=== PATIENT | female | born 1990 | race Caucasian/White ===

== ENCOUNTER 2017-08-13 23:57 | Emergency (ER) | payer MEDICAID ==
[~2017-08-13] VITALS: Ht 160 cm; Wt 100.8 kg
[2017-08-14 00:04] VITALS: Ht 160 cm; Wt 100.8 kg
[2017-08-14 00:35] VITALS: BP 122/77
== END 2017-08-14 00:35 | disposition home or self-care (01) ==
LOC: ED 23:57
DX: J32.9 Chronic sinusitis, unspecified (principal); I10 Essential (primary) hypertension

== ENCOUNTER 2018-08-12 20:04 | Emergency (ER) | payer MEDICAID ==
[~2018-08-12] VITALS: Ht 162.6 cm; Wt 98.9 kg
[2018-08-12 20:08] VITALS: Ht 162.6 cm; Wt 98.9 kg
[2018-08-12 21:51] VITALS: BP 118/87
== END 2018-08-12 21:51 | disposition home or self-care (01) ==
LOC: ED 20:04
DX: M54.6 Pain in thoracic spine (principal); R07.89 Other chest pain; Z98.890 Other specified postprocedural states
CPT/HCPCS: J1885